=== PATIENT | female | born 1945 | race Caucasian/White ===

== ENCOUNTER 2021-08-07 09:49 | Inpatient (IN) | payer MEDICARE ==
[2021-08-07] VITALS (7 sets, daily range): BP systolic 144–153; BP diastolic 60–84
[~2021-08-07] VITALS: Ht 157.4 cm; Wt 50.8 kg
[2021-08-07 10:16] LABS: HEMATOCRIT 26.4 % (37.0-47.0); LYMPH # 0.5 10*3/uL (1.3-4.4); LYMPH % 11.2 % (27.0-41.0); MEAN CELL VOLUME 89.2 fl (81.0-99.0); MEAN CORPUSCULAR HGB CONC 31.4 g/dl (33.0-37.0); MEAN PLATELET VOLUME 9.1 fl (9.6-12.3); MONO # 0.3 10*3/uL (0.1-1.0); MONO % 8.5 % (3.0-9.0); NEUT # 3.2 10*3/uL (2.3-7.9); NEUT % 79.6 % (47.0-73.0); PLATELET COUNT AUTOMATED 87 10*3/uL (130-400); RED BLOOD COUNT 2.96 10*6/uL (4.10-5.10); RED CELL DISTRI WIDTH 15.7 % (0-14.5)
[2021-08-07 10:32] LABS: ALBUMIN 2.9 gm/dl (3.1-4.5); ALKALINE PHOSPHATASE 78 U/L (45-117); BUN 41 mg/dl (7-24); CHLORIDE 109 mmol/L (98-107); CREATININE 2.92 mg/dL (0.55-1.02); POTASSIUM 4.4 mmol/L (3.5-5.1); SGOT/AST 18 IU/L (3-35); SGPT/ALT 14 U/L (12-78); SODIUM 136 mmol/L (136-145); TOTAL PROTEIN 7.7 gm/dL (6.4-8.2); TROPONIN I < 0.015 ng/ml (<0.045)
[2021-08-07] MEDS ORDERED: VENLAFAXINE HY150 M2 PO (11:57)
[2021-08-07] MEDS ORDERED: ZOLPIDEM10 MG PO (11:58)
[2021-08-07 12:06] LABS: BILIRUBIN Negative (Negative); BLOOD 3+ (Negative); CLARITY Clear (Clear); COLOR Yellow (Yellow); GLUCOSE Negative (Negative); KETONE Negative (Negative); LEUKO ESTERASE Negative (Negative); NITRITE Negative (Negative); PH 5.5 (4.5-8.0); UROBILINOGEN 0.2 E.U./dl (0.0-1.0)
[2021-08-07 12:24] LABS: BACTERIA 1+; RBC TNTC rbc/hpf (0-2); YEAST 1+
[2021-08-08 05:44] LABS: ALBUMIN 2.7 gm/dl (3.1-4.5); CREATININE 3.08 mg/dL (0.55-1.02); POTASSIUM 4.5 mmol/L (3.5-5.1); TOTAL PROTEIN 6.9 gm/dL (6.4-8.2)
[2021-08-08 05:50] LABS: THYROID STIM HORMONE (HS) 2.33 uIU/ml (0.358-4.75)
[2021-08-08 06:11] LABS: HEMATOCRIT 24.2 % (37.0-47.0); LYMPH # 0.5 10*3/uL (1.3-4.4); LYMPH % 22.5 % (27.0-41.0); MEAN CORPUSCULAR HGB 28.5 pg (27.0-31.0); MEAN PLATELET VOLUME 9.8 fl (9.6-12.3); MONO # 0.1 10*3/uL (0.1-1.0); MONO % 5.7 % (3.0-9.0); NEUT # 1.5 10*3/uL (2.3-7.9); NEUT % 71.3 % (47.0-73.0); PLATELET COUNT AUTOMATED 73 10*3/uL (130-400); RED BLOOD COUNT 2.63 10*6/uL (4.10-5.10); RED CELL DISTRI WIDTH 15.6 % (0-14.5); WHITE BLOOD COUNT 2.1 10*3/uL (4.8-10.8)
[2021-08-08 08:00] VITALS: BP 134/52
[2021-08-08 12:00] VITALS: BP 149/74
[2021-08-08 16:00] VITALS: BP 152/78; BP 160/88
[2021-08-08 17:52] LABS: BILIRUBIN Negative (Negative); BLOOD 3+ (Negative); CLARITY Clear (Clear); COLOR Yellow (Yellow); GLUCOSE Negative (Negative); KETONE Negative (Negative); LEUKO ESTERASE Negative (Negative); NITRITE Negative (Negative); PH 6.5 (4.5-8.0); UROBILINOGEN 0.2 E.U./dl (0.0-1.0)
[2021-08-08 17:57] LABS: URINE CREATININE RANDOM 26.2 mg/dL
[2021-08-08 18:02] LABS: RBC 51-100 rbc/hpf (0-2)
[2021-08-08 18:03] LABS: BACTERIA TRACE; EPITHELIAL CELLS 0-2; YEAST TRACE
[2021-08-08 20:00] VITALS: BP 165/82
[2021-08-09] VITALS (10 sets, daily range): BP systolic 140–170; BP diastolic 64–88
[2021-08-09 06:09] LABS: MEAN CELL VOLUME 89.9 fl (81.0-99.0); MEAN CORPUSCULAR HGB 28.6 pg (27.0-31.0); MEAN CORPUSCULAR HGB CONC 31.8 g/dl (33.0-37.0); MEAN PLATELET VOLUME 9.7 fl (9.6-12.3); PLATELET COUNT AUTOMATED 54 10*3/uL (130-400); RED BLOOD COUNT 2.17 10*6/uL (4.10-5.10); RED CELL DISTRI WIDTH 15.4 % (0-14.5)
[2021-08-09 06:15] LABS: ALBUMIN 2.1 gm/dl (3.1-4.5); CREATININE 2.87 mg/dL (0.55-1.02); POTASSIUM 4.5 mmol/L (3.5-5.1); TOTAL PROTEIN 6.2 gm/dL (6.4-8.2)
[2021-08-09 06:32] LABS: WHITE BLOOD COUNT 1.6 10*3/uL (4.8-10.8)
[2021-08-09 06:33] LABS: HEMATOCRIT 19.5 % (37.0-47.0)
[2021-08-09 07:20] LABS: PLATELET SUFFICIENCY LOW (NORMAL); ROULEAUX MARKED; TOTAL CELLS COUNTED 100 #CELLS
[2021-08-09 14:06] LABS: HEMATOCRIT 26.5 % (37.0-47.0); LYMPH # 0.4 10*3/uL (1.3-4.4); LYMPH % 15.2 % (27.0-41.0); MEAN CORPUSCULAR HGB 29.2 pg (27.0-31.0); MEAN CORPUSCULAR HGB CONC 33.2 g/dl (33.0-37.0); MEAN PLATELET VOLUME 8.2 fl (9.6-12.3); MONO # 0.2 10*3/uL (0.1-1.0); MONO % 7.2 % (3.0-9.0); NEUT % 77.2 % (47.0-73.0); PLATELET COUNT AUTOMATED 65 10*3/uL (130-400); RED BLOOD COUNT 3.01 10*6/uL (4.10-5.10); RED CELL DISTRI WIDTH 14.8 % (0-14.5); WHITE BLOOD COUNT 2.6 10*3/uL (4.8-10.8)
[2021-08-10] VITALS: BP 164/90
[2021-08-10 04:06] LABS: TOTAL PROTEIN, SERUM 6.4 g/dL (6.0-8.5)
[2021-08-10 05:47] LABS: CREATININE 2.91 mg/dL (0.55-1.02); POTASSIUM 4.9 mmol/L (3.5-5.1)
[2021-08-10 06:13] LABS: HEMATOCRIT 24.4 % (37.0-47.0); LYMPH # 0.5 10*3/uL (1.3-4.4); LYMPH % 21.4 % (27.0-41.0); MEAN CELL VOLUME 90.4 fl (81.0-99.0); MEAN CORPUSCULAR HGB 28.9 pg (27.0-31.0); MEAN PLATELET VOLUME 9.7 fl (9.6-12.3); MONO # 0.2 10*3/uL (0.1-1.0); MONO % 9.5 % (3.0-9.0); NEUT # 1.7 10*3/uL (2.3-7.9); NEUT % 68.3 % (47.0-73.0); PLATELET COUNT AUTOMATED 67 10*3/uL (130-400); WHITE BLOOD COUNT 2.5 10*3/uL (4.8-10.8)
[2021-08-10 08:00] VITALS: BP 152/85
[2021-08-10 12:00] VITALS: BP 159/79
[2021-08-10 13:07] LABS: A/G RATIO 0.8 (0.7-1.7); ALBUMIN 2.8 g/dL (2.9-4.4); ALBUMIN 2.9 g/dL (2.9-4.4); ALPHA-1-GLOBULIN 0.3 g/dL (0.0-0.4); ALPHA-2-GLOBULIN 0.7 g/dL (0.4-1.0); BETA GLOBULIN 0.7 g/dL (0.7-1.3); GAMMA GLOBULIN 1.9 g/dL (0.4-1.8); GLOBULIN, TOTAL 3.5 g/dL (2.2-3.9); GLOBULIN, TOTAL 3.6 g/dL (2.2-3.9); M-SPIKE Comment: g/dL (Not Observed)
[2021-08-10 16:00] VITALS: BP 159/78
[2021-08-10 17:06] LABS: FREE KAPPA LIGHT CHAINS 266.4 mg/L (3.3-19.4); FREE LAMBDA LIGHT CHAINS 143.1 mg/L (5.7-26.3); KAPPA/LAMBDA RATIO 1.86 (0.26-1.65)
== END 2021-08-10 16:40 | disposition home or self-care (01) | DRG 808 ==
LOC: ED 09:49 → EDHOLD 11:43 → 4E 11:43
PROVIDERS: Internal Medicine; Internal Medicine Hematology & Oncology; Internal Medicine Nephrology; Student in an Organized Health Care Education/Training Program; ADMIT Internal Medicine; ATTEND Internal Medicine
PROC: 30233N1 Transfusion of Nonautologous Red Blood Cells into Peripheral Vein, Percutaneous Approach (ICD-10-PCS; principal; 2021-08-09)
DX: D61.818 Other pancytopenia (principal); N17.0 Acute kidney failure with tubular necrosis; E44.0 Moderate protein-calorie malnutrition; N18.4 Chronic kidney disease, stage 4 (severe); Z68.1 Body mass index [BMI] 19.9 or less, adult; Z20.822 Contact with and (suspected) exposure to COVID-19; I95.1 Orthostatic hypotension; E86.0 Dehydration; D69.6 Thrombocytopenia, unspecified; F32.9 Major depressive disorder, single episode, unspecified; M25.519 Pain in unspecified shoulder; R31.9 Hematuria, unspecified; I12.9 Hypertensive chronic kidney disease with stage 1 through stage 4 chronic kidney disease, or unspecified chronic kidney disease; Z82.49 Family history of ischemic heart disease and other diseases of the circulatory system; Z88.0 Allergy status to penicillin; Z79.899 Other long term (current) drug therapy

== ENCOUNTER 2023-05-26 16:25 | Emergency (ER) | payer MEDICARE ==
[2023-05-26] VITALS (8 sets, daily range): BP systolic 118–137; BP diastolic 42–60
[~2023-05-26 16:25] MED LIST: VENLAFAXINE HY150 M2 PO; ZOLPIDEM10 MG PO
[2023-05-26 17:10] LABS: BILIRUBIN Negative (Negative); BLOOD 2+ (Negative); CLARITY Clear (Clear); COLOR Yellow (Yellow); GLUCOSE Negative (Negative); KETONE Negative (Negative); LEUKO ESTERASE Negative (Negative); NITRITE Negative (Negative); UROBILINOGEN 0.2 E.U./dl (0.0-1.0)
[2023-05-26 17:15] LABS: HEMATOCRIT 21.1 % (37.0-47.0); MEAN CELL VOLUME 103.9 fl (81.0-99.0); MEAN CORPUSCULAR HGB CONC 31.8 g/dl (33.0-37.0); MEAN PLATELET VOLUME 8.4 fl (9.6-12.3); PLATELET COUNT AUTOMATED 60 10*3/uL (130-400); RED BLOOD COUNT 2.03 10*6/uL (4.10-5.10); RED CELL DISTRI WIDTH 15.7 % (0-14.5)
[2023-05-26 17:18] LABS: URINE AMPHETAMINES Negative (1000ng/ml); URINE BARBITURATES Negative (200ng/ml); URINE BENZODIAZEPINES Negative (200ng/ml); URINE CANNABINOIDS (THC) Negative (50ng/ml); URINE COCAINE Negative (300ng/ml); URINE METHADONE Negative (300ng/ml); URINE OPIATES Negative (300ng/ml); URINE PHENCYCLIDINE Negative (25ng/ml)
[2023-05-26 17:24] LABS: MANUAL DIFF REFLEX YES
[2023-05-26 17:36] LABS: BASOPHILS 1 % (0-1); TOTAL CELLS COUNTED 100 #CELLS
[2023-05-26 17:37] LABS: PLATELET SUFFICIENCY NORMAL (NORMAL)
[2023-05-26 17:39] LABS: ACT PARTIAL THROMBO TIME 30.2 SECONDS (20.0-32.1); INTERNATIONAL NORM RATIO 1.2 (2.0-3.5)
[2023-05-26 17:44] LABS: PH >= 9.0 (4.5-8.0)
[2023-05-26 17:50] LABS: BACTERIA 1+; RBC 21-30 rbc/hpf (0-2)
[2023-05-26 17:52] LABS: ALKALINE PHOSPHATASE 49 U/L (46-116); BUN 5 mg/dl (9-23); CHLORIDE 116 mmol/L (98-107); LIPASE 25 U/L (12-53); TOTAL PROTEIN 3.8 gm/dL (6.0-8.0)
[2023-05-26 17:57] LABS: SGPT/ALT < 7 U/L (10-49)
[2023-05-26 17:59] LABS: POTASSIUM 2.4 mmol/L (3.4-5.1)
[2023-05-26] MEDS ORDERED: ONDANSETRON HYDR4 M1 PO (19:32)
[2023-05-26] MEDS ORDERED: NEPHRO-VITE TA0.8 MG PO (19:33)
[2023-05-26] MEDS ORDERED: ISORDIL10 M1 PO (19:33)
[2023-05-26] MEDS ORDERED: AMLODIPINE BESYL5 MG PO (19:35)
[2023-05-26] MEDS ORDERED: BUMETANIDE2 MG PO (19:37)
[2023-05-26] MEDS ORDERED: CETIRIZINE HYDRO5 M2 PO (19:37)
[2023-05-26] MEDS ORDERED: CARVEDILOL6.25 MG PO (19:37)
== END 2023-05-27 00:31 | disposition home or self-care (01) ==
LOC: ED 16:25
PROVIDERS: Emergency Medicine
DX: T67.9XXA Effect of heat and light, unspecified, initial encounter (principal); R41.82 Altered mental status, unspecified; R41.0 Disorientation, unspecified; E87.8 Other disorders of electrolyte and fluid balance, not elsewhere classified; R79.82 Elevated C-reactive protein (CRP); N18.6 End stage renal disease; E83.51 Hypocalcemia; E87.20 Acidosis, unspecified; D61.818 Other pancytopenia; E43 Unspecified severe protein-calorie malnutrition; Z88.0 Allergy status to penicillin; Z79.899 Other long term (current) drug therapy; Z98.890 Other specified postprocedural states; Z99.2 Dependence on renal dialysis; X58.XXXA Exposure to other specified factors, initial encounter; Y93.89 Activity, other specified; Y92.89 Other specified places as the place of occurrence of the external cause; Y99.8 Other external cause status